=== PATIENT | female | born 1960 | race Caucasian/White ===

== ENCOUNTER 2021-04-30 13:19 | Outpatient (REF) | payer OTHER, SELFPAY ==
--- NOTE | ~2021-04-30 | MM_ITS ---
EXAMINATION: MM SCREENING DIGITAL BREAST TOMOSYNTHESIS, LEFT CLINICAL INFORMATION: Screening. Asymptomatic. Right mastectomy for breast cancer, 2004. Due for yearly COMPARISON: Mammography: 01/21/2020, 01/17/2020, 10/12/2018, 09/25/2017 TECHNIQUE: Digital breast tomosynthesis is performed in both the craniocaudal and mediolateral oblique views along with computer-aided detection (CAD). Synthesized 2D images are generated from the tomosynthesis. FINDINGS: The breasts are heterogeneously dense, which may obscure small masses (ACR BI-RADS breast composition Category c). Breast tissue composition borders on extremely dense. Parenchymal pattern is similar to prior exams. Again, there are scattered punctate calcifications and old benign low axillary tail node. The skin contours are smooth. No significant changes. MM/MM tomosynthesis screening LT IMPRESSION: No mammographic evidence of malignancy. ASSESSMENT: BI-RADS 2: Benign RECOMMENDATION: Routine annual mammography screening. This patient's information was entered into a reminder system with a target due date for their next mammogram.
== END 2021-04-30 13:20 | disposition home or self-care (01) ==
LOC: HO.MAMMO 13:19
PROVIDERS: Visit Provider Internal Medicine
DX: Z12.31 Encounter for screening mammogram for malignant neoplasm of breast (principal)
CPT/HCPCS: 77063; 77067

== ENCOUNTER 2022-05-02 12:53 | Outpatient (REF) | payer OTHER, SELFPAY ==
--- NOTE | ~2022-05-02 | MM_ITS ---
EXAMINATION: MM SCREENING DIGITAL BREAST TOMOSYNTHESIS, LEFT CLINICAL INFORMATION: Screening. Asymptomatic. Status post right mastectomy. COMPARISON: Mammography: April 30, 2021 and studies dating back to June 12, 2011 TECHNIQUE: Digital breast tomosynthesis is performed in both the craniocaudal and mediolateral oblique views along with computer-aided detection (CAD). Synthesized 2D images are generated from the tomosynthesis. FINDINGS: The breasts are heterogeneously dense, which may obscure small masses (ACR BI-RADS breast composition Category c). There are no new significant masses, abnormal calcifications, or other abnormalities. Grouped and scattered calcifications are again seen and appears stable. MM/MM tomosynthesis screening LT IMPRESSION: No significant changes from prior exam. ASSESSMENT: BI-RADS 1: Negative RECOMMENDATION: Routine annual mammography screening. This patient's information was entered into a reminder system with a target due date for their next mammogram.
== END 2022-05-02 12:54 | disposition home or self-care (01) ==
LOC: HO.MAMMO 12:53
PROVIDERS: PCP Internal Medicine; Visit Provider Internal Medicine
DX: Z12.31 Encounter for screening mammogram for malignant neoplasm of breast (principal)
CPT/HCPCS: 77063; 77067

== ENCOUNTER 2023-05-07 14:17 | Outpatient (REF) | payer OTHER, SELFPAY ==
--- NOTE | ~2023-05-07 | MM_ITS ---
EXAMINATION: MM SCREENING DIGITAL BREAST TOMOSYNTHESIS, LEFT CLINICAL INFORMATION: Screening. Asymptomatic. COMPARISON: Mammography: This study is compared with prior exams dating back to 2017. TECHNIQUE: Digital breast tomosynthesis is performed in both the craniocaudal and mediolateral oblique views along with computer-aided detection (CAD). Synthesized 2D images are generated from the tomosynthesis. FINDINGS: There are scattered areas of fibroglandular density (ACR BI-RADS breast composition Category b). There are no significant masses, abnormal calcifications, or other abnormalities. There are few, unchanged, benign calcifications. MM/MM tomosynthesis screening LT IMPRESSION: No mammographic evidence of malignancy. ASSESSMENT: BI-RADS BI-RADS 2 - Benign Findings RECOMMENDATION: Routine annual mammography screening. 1 year F/U This examination should not preclude the clinical evaluation of a suspicious palpable abnormality. This patient's information was entered into a reminder system with a target due date for their next mammogram.
== END 2023-05-07 14:18 | disposition home or self-care (01) ==
LOC: HO.MAMMO 14:17
PROVIDERS: PCP Internal Medicine; Visit Provider Internal Medicine
DX: Z12.31 Encounter for screening mammogram for malignant neoplasm of breast (principal)
CPT/HCPCS: 77063; 77067

== ENCOUNTER → 2023-05-07 14:30 | Outpatient (BNV) | payer OTHER, SELFPAY | PROVIDERS: PCP Internal Medicine; Visit Provider Radiology Diagnostic Radiology | DX: Z12.31 Encounter for screening mammogram for malignant neoplasm of breast (principal) | CPT/HCPCS: 77063; 77067 ==

== ENCOUNTER 2024-03-12 10:40 | Outpatient (AMB) | payer OTHER, SELFPAY ==
--- NOTE | 2024-03-12 07:57 | A.OFFVIS_ITS ---
Intake Visit Reasons: Current Smoker Allergies No Known Allergies [No Known Allergies*] Allergy (Unverified 03/23/20 17:48) HPI HPI Current Smoker: Details: Initial visit for this 63yo smoker with a 30+PYH. Patient has been smoking since age 17 for 45 years at 1/2-1ppd. She quit for a period of 9 months a few years ago - but has since restarted. Trying Chantix to cut down. . Denies marijuana use. Denies second hand smoke exposure. Denies exposure to chemicals or substances like asbestos. . Denies known family history of lung cancer. Reports personal history of Breast cancer - s/p mastectomy, chemo + radiation- [address] in last year. . Denies recent travel outside the [place]. Denies recent respiratory illness or recent hospitalization for respiratory issues. Denies testing positive for COVID. Admits receiving COVID Vaccine. x 3 or 4. . Denies fever, chills, new/worsening cough, hemoptysis, hoarseness or dysphagia. Denies significant chest pain, significant dyspnea or unintentional weight loss. Patient Lung Cancer Screening Questionnaire reviewed with patient by provider. . Shared Decision Making Completed. Patient meets criteria. Discussed in detail with patient, the risk vs benefit of LDCT screening. Patient consents to proceed with scan. Discussed smoking cessation. [facility] Medical History (Updated 03/12/24 @ 11:05 by Saida Robledo PA-C) History of right breast cancer Nicotine dependence, cigarettes, uncomplicated Surgical History (Updated 03/12/24 @ 11:06 by Saida Robledo PA-C) History of foot surgery History of exploratory laparotomy History of left mastectomy History of colonoscopy Social History (Updated 03/12/24 @ 10:55 by Saida Robledo PA-C) Patient Tobacco Use Status: Current everyday Tobacco user Years Smoked: (onset 17yo, 1/2-1ppd x 45yrs, 30+PYH) Assessment & Plan Assessment & Plan (1) Nicotine dependence, cigarettes, uncomplicated: Comment: (onset 17yo, 1/2-1ppd x 45yrs, 30+PYH) Code(s): F17.210 - Nicotine dependence, cigarettes, uncomplicated Category: Medical Plan: - SDM visit completed today in office. - Patient meets criteria for LDCT for lung cancer screening purposes and is asymptomatic. - Smoking cessation counseling offered. Patients can always call [phone]. - Will arrange for a LDCT scan of the chest for screening purposes at [facility]. - Risks, benefits, and alternatives were discussed in detail and the patient agrees to proceed. - Risks discussed include but are not limited to: radiation exposure, anxiety during testing and while awaiting results, false negatives, false positives and possibility of additional intervention such as further imaging or surgical procedures for benign disease. - Benefits are obviously detection of lung cancer at an early stage which can lead to improved outcomes. - Discussed the importance of screening program compliance with adherence to yearly LDCT scan as scheduled - or sooner interval scans for personalized sc reening regimen. - Discussed follow up plan. Our office will send a letter discussing results and if needed set up phone call and office visit based on CT findings. - Patient educated on results categorization and the management decisions for suspicious findings potentially found on the screening LDCT scan. Any patient with a Lung RADS score of 3 or 4 will be reviewed by a multidisciplinary team at [facility] to form a plan of action in regards to scan findings. - If further work up is warranted for a suspicious lung finding this will be followed by the Lung Cancer Screening program in conjunction with the Thoracic Surgery Department at [facility]. - A copy of the office note and LDCT will be sent to the patient's PCP - as well as documentation on any associated further plans of care. - Incidental findings on LDCT are the PCP's responsibility. These findings are indicated with an S finding on the LDCT Assessment. A note discussing the findings will be sent to the PCP who is then responsible for further management. - All questions answered.? Coding Level of Care Code Lung Cancer Screening G0296 Diagnoses Nicotine dependence, cigarettes, uncomplicated F17.210
== END 2024-03-12 11:04 | disposition home or self-care (01) ==
PROVIDERS: PCP Internal Medicine; Visit Provider Physician Assistant Medical
DX: F17.210 Nicotine dependence, cigarettes, uncomplicated (principal)
CPT/HCPCS: G0296

== ENCOUNTER 2024-03-12 11:05 | Outpatient (REF) | payer OTHER, SELFPAY ==
--- NOTE | ~2024-03-12 | CT_ITS ---
EXAMINATION: CT CHEST LOW-DOSE SCREENING WITHOUT CONTRAST HISTORY: Asymptomatic patient meeting criteria for lung screening. Nicotine dependence, cigarettes, uncomplicated. PATIENT PACK-YEAR HISTORY: Patient is a current smoker, 1 pack per-day x 45 years. Current Smoker: Yes. COMPARISON: None available. TECHNIQUE: Multidetector volumetric non-contrast CT imaging of the chest was obtained on a Somatom Definition scanner using low dose screening CT technique. Axial thin section 0.625 mm reformations in soft tissue and lung windows were obtained. Sagittal and coronal reformations were obtained. Axial MIP images were also created and reviewed. RECONSTRUCTED WIDTH: 1.25 mm x [address] examination was performed using dose optimization techniques as appropriate, variously including the following: *Automated exposure control *Adjustment of mA and/or kV according to patient size (this includes techniques or standardized protocols for targeted exams where dose is matched to indication/reason for exam; i.e. extremities or head) *Use of iterative reconstruction technique TOTAL EXAM DLP: 53 mGy-cm. CTDIvol: 147 mGy. FINDINGS: PULMONARY NODULES: A number of pulmonary nodules are present includin mm left upper lobe (5:38). 5 mm right upper lobe (5:38). 5 mm right upper lobe (5:71). 4 mm left upper lobe (5:72). Semisolid right upper lobe perifissural nodule measuring 8.6 x 6.6 x 4.2 mm-mean 6.4 mm (5:215). A few other smaller nodules are present as well (see saved eaton images). LUNGS: Lungs bilaterally symmetrically expanded. Mild emphysematous changes are present along with bronchial thickening without bronchiectasis. No effusion or pneumothorax. Central airways patent. LYMPHATIC STRUCTURES: No mediastinal, hilar or axillary adenopathy or free fluid collection. THYROID GLAND: Unremarkable to the extent seen. CARDIOVASCULAR STRUCTURES: Aortic and heart size normal. No significant coronary artery calcifications. No pericardial effusion. UPPER ABDOMEN: Included portions of the solid organs in the upper abdomen unremarkable on noncontrast imaging. OSSEOUS STRUCTURES: No suspicious focal findings. SPINAL COMPRESSION: Absent. CT/CT lung screening IMPRESSION: Multiple pulmonary nodules are seen, the largest measuring a mean of 6.4 mm on this baseline study. LUNG-RADS CATEGORY ASSESSMENT: 3: Probably Benign. INCIDENTAL FINDINGS (S CATEGORY): Finding: No incidental findings. Significance category: Normal or normal variant. RECOMMENDATION: Low dose lung CT. overall in 6 months. Visual estimate of coronary calcified plaque burden: None. However, this exam cannot replace a dedicated cardiac CT calcium score for accurate assessment. Electronically signed by: Gage Elliott MD 05/10/2024 02:06 PM [facility]
== END 2024-03-12 11:06 | disposition home or self-care (01) ==
LOC: HO.CT 11:05
PROVIDERS: PCP Internal Medicine; Visit Provider Physician Assistant Medical
DX: Z12.2 Encounter for screening for malignant neoplasm of respiratory organs (principal); F17.210 Nicotine dependence, cigarettes, uncomplicated
CPT/HCPCS: 71271; G0296

== ENCOUNTER → 2024-06-23 13:30 | Outpatient (BNV) | payer OTHER, SELFPAY | PROVIDERS: PCP Internal Medicine; Visit Provider Internal Medicine | DX: Z12.31 Encounter for screening mammogram for malignant neoplasm of breast (principal) | CPT/HCPCS: 77063; 77067 ==

== ENCOUNTER 2024-06-23 13:33 | Outpatient (REF) | payer OTHER, SELFPAY | END 2024-06-23 13:34 | disposition home or self-care (01) | LOC: HO.MAMMO 13:33 | PROVIDERS: PCP Internal Medicine; Visit Provider Internal Medicine | DX: Z12.31 Encounter for screening mammogram for malignant neoplasm of breast (principal) | CPT/HCPCS: 77063; 77067 ==

== ENCOUNTER 2024-07-29 13:16 | Outpatient (REF) | payer OTHER, SELFPAY ==
--- NOTE | ~2024-07-29 | MM_ITS ---
EXAMINATION: MM DIAGNOSTIC DIGITAL BREAST TOMOSYNTHESIS, LEFT Limited left breast ultrasound. CLINICAL INFORMATION: History of right mastectomy. History of left breast mastopexy. COMPARISON: Mammography: Comparison is made with prior breast imaging dating back to 2012. TECHNIQUE: Digital breast tomosynthesis is performed in both the craniocaudal and mediolateral oblique views along with computer-aided detection (CAD). Synthesized 2D images are generated from the tomosynthesis. Limited left breast ultrasound. FINDINGS: The breasts are heterogeneously dense, which may obscure small masses (ACR BI-RADS breast composition Category c). Architectural distortion in the upper central breast stable dating back to 2019 and reflects post mastopexy changes. No suspicious masses calcifications or other abnormal findings. Targeted color Doppler ultrasound scanning from 10-2 o'clock images normal fibroglandular breast tissue. MM/MM tomosynthesis added views L IMPRESSION: No mammographic or sonographic evidence of malignancy. Post mastopexy changes are stable. Patient has a history of breast cancer and dense breast tissue. Breast MRI could be considered for further evaluation. Breast MRI needs to be ordered by the patient's providing clinician. ASSESSMENT: BI-RADS BI-RADS 2 - Benign Findings RECOMMENDATION: 1 year F/U Results were provided to the patient at time of visit by the technologist. This patient's information was entered into a reminder system with a target due date for their next mammogram. Electronically signed by: Gretchen Trejo DO 07/29/2024 02:00 PM [facility] Workstation: [id number]
== END 2024-07-29 13:17 | disposition home or self-care (01) ==
LOC: HO.MAMMO 13:16
PROVIDERS: PCP Internal Medicine; Visit Provider Internal Medicine
DX: N64.89 Other specified disorders of breast (principal)
CPT/HCPCS: 76642; 77061; 77065

== ENCOUNTER → 2024-07-29 13:30 | Outpatient (BNV) | payer OTHER, SELFPAY | PROVIDERS: PCP Internal Medicine; Visit Provider Internal Medicine | DX: Z85.3 Personal history of malignant neoplasm of breast (principal) | CPT/HCPCS: 76642; 77061; 77065 ==

== ENCOUNTER 2024-09-07 11:01 | Outpatient (REF) | payer OTHER, SELFPAY ==
--- NOTE | ~2024-09-07 | CT_ITS ---
CLINICAL HISTORY: F17.210 - Nicotine dependence, cigarettes, uncomplicated CT lung cancer screening (LDCT) Comparison: Chest CT from 03/12/2024 Technique: Axial CT images of the chest using low-dose technique. Referring provider counseled the patient on shared decision-making for LDCT screening. Additional counseling was provided on smoking cessation. Effective radiation dose total: DLP 90.1 mGycm, CTDIvol 2.4 mGy. Findings: Lung: New ground-glass lesion measures 1.4 cm (part solid less than 5 mm) posteriorly in the right upper lobe (4A). This is nonspecific but may be infectious/inflammatory, given multiple new bilateral pulmonary opacities, with apical predominance. Additional new airspace disease includes lingula , right middle lobe, and right lower lobe. Lung etiologies not excluded. Coronary artery calcifications: Moderate to severe Limited upper abdomen: Unchanged Other: No significant change in old mild-moderate thoracic vertebral height losses, again accentuated by multifocal Schmorl's nodes degenerative changes include the imaged shoulders, manubrium, and spine. Impression: Category 4 S (potentially clinically significant) with new multifocal airspace disease concerning for multifocal pneumonia. Otherwise, Category 4A: Suspicious, [address] recommended; may consider PET/CT, given new ground-glass index in the right upper lobe This document has been electronically signed by: Сергей Cárdenas MD on 09/07/2024 21:14:29
--- OUTSIDE RECORDS SUMMARY | 2024-09-07 13:47 | XMS_ITS | Data Portability ---
Author Organization [facility], [facility] Address [address] [place] [address] Care Team Providers Care Professor Of German Name Role Phone KEI JIMÉNEZ Primary Care Provider [phone] Assessment Encounter Date Assessment Date Assessment LastModified by Organization Details LastModified Time 07/01/2024 07/01/2024 Chief Complaint: Right knee complex medial meniscus tear and medial compartment arthrosis HPI: The patient is a 64-year-old female here today regarding a chronic long-term history of recurrent right knee pain. She ices her pain to her medial knee. She denies any specific injury or trauma. She has tried rest, activity modification, oral anti-inflammatori es and cortisone injection treatment. Of note, she is greater than 1 year status post previous left knee arthroscopy with partial medial meniscectomy and chondroplasty performed by myself in 2022 and has done very well since that surgery. She complains of similar pain to her right knee. I independently reviewed the outside MRI of the right knee dated 06/20/2024 from [facility]. There is complex tearing of the posterior horn and body of the medial meniscus along with significant meniscal extrusion. Full thickness and near full but is chondral loss noted to the mid weightbearing portion medial femoral condyle and medial tibial plateau along with subchondral edema. ACL and PCL intact. Likely degenerative tearing of the anterolateral and lateral meniscus. Mild chondromalacia to the lateral compartment. Extensor mechanism intact. Collateral ligaments intact. Mild patellofemoral chondromalacia. I independently reviewed recent weightbearing x-rays of both knees obtained 03/05/2024 from [facility] revealing relatively normal medial and lateral compartment joint space. Past medical, surgical, family and social history; Medications, Allergies and 12-point review of systems have been reviewed, updated and charted. Physical Examination: Height and weight as listed in chart. Constitutional: Patient pleasant, well appearing and in NAD. Mental status: Patient is alert and oriented to person, place and time. No short-term memory deficits. Psychiatric: Mood and affect are appropriate. Head: Normocephalic and atraumatic. Exterior inspection of the ears and nose was unremarkable. Hearing grossly intact. Eyes: Sclera are not blue. plate roller II-XII are grossly intact. Full extraocular motion. Neck: Supple with age-appropriate ROM. No tracheal deviation. No obvious JVD. Respiratory: Non-labored breathing. Symmetric excursion. No audible wheezing or crackles on auscultation. Cardiovascular: Regular rate and rhythm and normal S1 and S2. Skin: No rashes, lesions, wounds to the lower extremities. Normal turgor and coloration. Musculoskeletal: On examination of the right knee, there is a mild effusion with no erythema or ecchymosis. Range of motion from 0-130? ? ? pictures pain with deep knee flexion. Tenderness to palpation along the medial joint line. Pain along the medial joint line with Lindy's maneuver. Her knee is stable to varus and valgus stress as well as Isabella and posterior drawer. Extensor mechanism intact. Impression and Plan: 64-year-old female with a long-term history of recurrent right knee pain overall history, examination and imaging consistent with right knee complex medial meniscus tear and medial compartment arthrosis. I discussed etiology of the patient's symptoms with her at length today. I discussed options both operative and nonoperative. At this point, she has failed conservative treatment including rest, activity modification, oral anti-inflammatori es and cortisone injection treatment. Therefore, I discussed moving forward with right knee diagnostic and operative arthroscopy with partial medial meniscectomy, partial lateral meniscectomy and chondroplasty/sydney ridement. I discussed with her at length that I cannot cure her underlying arthritis with arthroscopy. She did have a favorable outcome despite early arthritic change following a knee arthroscopy to the left knee. I did discuss with her that she will likely require a knee replacement to her right knee in the future but she would like to take measures to delay this at possible. Anticipated recovery after surgery is approximately 6 weeks. I will allow the patient to weight-bear as tolerated. I recommend the patient begin physical therapy within 2 days of surgery to prevent knee stiffness. The patient does wish to proceed. Preoperative history and physical completed. All questions and concerns addressed. 1. A detailed discussion regarding the patient? s pathoanatomy and treatment options, both operative and non-operative, was conducted today. 2. Given that conservative measures have failed, I recommended right knee diagnostic and operative arthroscopy with partial medial meniscectomy, partial lateral meniscectomy and chondroplasty/sydney ridement. 2. The mechanics of the major surgery were reviewed with explanation, diagram, and review of imaging. 3. I told the patient that the goal of surgery was to improve their overall function and symptoms, but that surgery may not relieve all symptoms. I advised the patient that symptom resolution after this procedure may be protracted and incomplete.? ? ? I explained that, as a result, permanent functional limitations may be recommended. 4. An appropriate timeline of recovery was outlined, and appropriate expectations were reviewed. 5. The risks and benefits of surgery, and the nonoperative alternatives, were discussed at length. Risks include, but are not limited to infection, bleeding, damage to nerves, blood vessels, muscle, tendon, bone; need for further surgery, wound healing problems, hardware related problems, non-relief of symptoms, recurrence of pathology, reinjury, chronic pain, chronic numbness, chronic weakness, loss of function, compartment syndrome, fracture, complex regional pain syndrome, joint stiffness, adhesions/scarrin g, arthritis or progression of arthritis, complications of anesthesia, and blood clots. 6. The patient has been educated in clear, simple language and on their own level of understanding the risks and benefits of all viable treatment options, including those of no treatment. All questions have been answered to their satisfaction. The patient has made an informed decision to proceed with surgery. 7. The patient was offered a second opinion regarding diagnosis and management of their condition and they respectfully declined. Today's visit involved examining the patient, reviewing the history, reviewing the radiographic studies, counseling the patient regarding treatment options, and the administrative tasks including placing orders, preparing patient information and home handouts and preparing the visit note. This note was generated with [employer] [facility] speech recognition joist setter dictation software. Please excuse any errors that may have been overlooked during review of this note. Sometimes, these errors may affect the content or meaning of a given sentence. Please call for corrections. [email or web address] Not available 07/01/2024 09:26:24 Plan of Treatment Reminders Order Date Submit Date Provider Last Modified By Organization Details Last Modified Time Details Appointments None recorded. Lab None recorded. Referral None recorded. Procedures None recorded. Surgeries None recorded. Imaging MRI, knee, w/o contrast - Right knee MRI eval MMT 2023 024 [facility] ([facility] [address], [place], [address], 4 16:17:53 XR, knee, 4 or more view - ROOM 1 2023 024 [facility], [address], [address], [place], [address], 4 16:48:39 Medication Orders None recorded. Patient TargetsNo targets recorded. Patient InstructionsNo instructions recorded. Reason for Referral None Reported. Results Created Date Observation Date Name Description Value Unit Range Abnormal Flag Note LastModifiedBy Organization Detail LastModifiedTime 03/05/20 24 03/05/2024 XR, knee, 4 or more view [email or web address] ?Encry pted=s hAaTro YD8dLq bEUv6g %2BXZw aYqtaq 0bqfl% 2Fg9IQ a4ajBk vP9nXo QUaueC m3YtLR FvZlgJ JJ8mAn HZtai3 7x0999 AC0Kpb 3WGU6C nKiQtr MwF INTERFACE [facility] [address], [place], [address], 03/05/2024 13:29:41 03/05/20 24 03/05/2024 XR, knee, 4 or more view [email or web address] ?Encry pted=s hAaTro YD8dLq bEUv6g %2BXZw aYqtaq 0bqfl% 2Fg9IQ a4ajBk vP9nXo QUaueC m3YtLR FvZlgJ JJ8mAn HZtai3 4f8704 AC0Kpb 3WGU6C nKiQtr MwF INTERFACE [facility] [address], [place], [address], 03/05/2024 13:29:43 03/05/20 24 09/19/2022 imagi ng/di agnos tic resul t No observ ation record ed. [email or web address] Not Available 02/06 20:59:37 06/22/20 24 06/20/2024 MRI, knee, w/o contr ast [facility] Access ion Number : [id number] [place] t Name: Gladys Campos Record Number : [id number] Date of : 1959 Date of Exam: 2023 Referr ing Physic rhonda: Cheryl Funes en [facility] [address], [address] [facility], [facility] [address] Exam: MR Knee (C-) CPT 75269 - Right Room Descri ption: [place] GE Pion 3T Histor y: Other tear medial menisc us, curren t injury , questi on right medial menisc al tear. The patien t report s right knee pain which was not reliev ed with cortis one inject ion, sympto ms for years, occasi onal swelli ng and weakne ss.. Techni que: MRI of the right knee was perfor med withou t intrav enous contra st. Compar warren: None. Findin gs: Joint effusi on: There is mild synovi tis in the suprap atella r recess withou t a signif icant joint effusi on. Hoffa' s fat pad is unrema rkable . There is a multil obulat ed Couch' s cyst. Menisc i: There is a horizo ntal tear of the medial menisc al pharmacy informaticist ior third extend ing into the body. There is partia lly detach ed, displa candy menisc al fragme nt extend ing inferi ortiz in the medial gutter from the body. Free margin trunca tion is seen in the body of the latera l menisc us with focal horizo ntal tear along the free margin anteri or third. Tendon s and ligame nts: The ACL and PCL are intact . The collat eral ligame nts are unrema rkable . The ilioti bial band is unrema rkable . The extens or mechan ism appear s normal . Articu lar cartil age and bone: There is full-t hickne ss chondr al loss in the periph lindsey of the weight bearin g portio n the medial compar tment involv ing both the femora l and tibial surfac es with adjace nt subcho ndral marrow edema. Bony prolif eratio n is seen along both joint lines. There is irregu lar chondr al thinni ng in the pharmacy informaticist ior aspect of the latera l femora l condyl e. There is chondr al thinni ng inferi ortiz in the medial trochl ea with adjace nt subcho ndral cysts. Mild chondr al thinni ng is seen of the patell a. Impres eric: 1. Horizo ntal tear of the pharmacy informaticist ior third and body of the medial menisc us. 2. Horizo ntal tear anteri ortiz in the latera l menisc us and free margin tearin g of its body 3. Tricom partme ntal degene rative change with full-t hickne ss chondr al loss in the weight bearin g portio n of the medial compar tment. Electr onical ly Signed By: Mia Castano ra, MD [address] [facility] ([facility]) [address], [place], [address], 06/25/2024 13:33:47 06/22/20 24 06/20/2024 MRI, knee, w/o contr ast No observ ation record ed. [facility] ([facility]) [address], [place], [address], 06/25/2024 12:15:23 Result Notes None recorded. Problems Name Problem SNOMED Code Status Onset Date Resolution Date Notes Provider Name and Address Organization Details Recorded Time No complaints 031541135 Active Status : 'I'; Not Available [facility] 4 09:22:10 Problem Notes None recorded. Procedures Surgical History Date Name Laterality Status Provider Name and Address Organization Details Recorded Time 03/05/2024 Sports Knee 4&1 completed Brandie Funes PA-C [address], [place], [address], [facility] 03/05/2024 14:02:36 Imaging Results Imaging Date Name Status LastModified by Organiz ation Details LastModified Time 03/05/2024 XR, knee, 4 or more view completed INTERFACE [facility] [address], [place], [address], 03/05/2024 13:29:41 03/05/2024 XR, knee, 4 or more view completed INTERFACE [facility] [address], [place], [address], 03/05/2024 13:29:43 09/19/2022 imaging/diagn ostic result completed [email or web address] Information not available 03/05/2024 20:59:37 06/20/2024 MRI, knee, w/o contrast completed [address] [facility] ([facility]) [address], [place], [address], 06/25/2024 13:33:47 06/20/2024 MRI, knee, w/o contrast completed [facility] ([facility]) [address], [place], [address], 06/25/2024 12:15:23 Procedure Notes None recorded. Medical Equipment None Reported. Allergies No known drug allergies Medications Name Sig Start Date Stop Date Status Note LastModified by Organization Details LastModified Time venlafaxine ER 75 mg capsule,ext ended release 24 hr TAKE 1 CAPSULE BY MOUTH EVERY DAY active Not Available Not Available No t Available levothyroxi ne 100 mcg tablet TAKE 1 TABLET BY MOUTH EVERY DAY active Not Available Not Available No t Available pseudoephed rine-guaife nesin ER 80-700 mg tablet,exte nded release 1-2 TABS EVERY 4-6 HOURS NEEDED FOR PAIN. THIS PRESCRIPT ION MUST LAST 7 DAYS 10/07 completed Statu s: 'Disc ontin ued'; Not Available Not Available Not Available varenicline tartrate 1 mg tablet TAKE 1 TABLET BY MOUTH TWICE A DAY active Not Available Not Available No t Available oxycodone HCl-oxycodo ne-ASA as directed 1 Tab po Q 4-6 hrs prn pain. DO NOT DRIVE WHILE TAKING THIS MEDICATIO N 03/05 completed Statu s: 'Curr ent'; Not Available Not Available Not Available Vitals Date Recorded Body height Body mass index (BMI) Body weight Provider Name and Address Organization Details Last Updated DateTime 03/05/2024 167.64 cm 29.9 kg/m2 01397.59 g HARRY MOORE [facility] 03/05/2024 13:21:05 Date Recorded Body height Body mass index (BMI) Body weight Provider Name and Address Organization Details Last Updated DateTime 06/11/2024 167.64 cm 29.9 kg/m2 17942.59 g Elida joya [facility] 06/11/2024 13:49:29 Date Recorded Body height Body mass index (BMI) Body weight Heart rate Body temperature Oxygen saturation Oxygen saturation in Arterial blood by Pulse oximetry Respiratory rate Systolic blood pressure Diastolic blood pressure Provider Name and Address Organization Details Last Updated DateTime 167.64 cm 29.9 kg/m2 39202.5 9 g 76 /min 97.4 [degF] 96 % 96 % 18 /min 112 mm[Hg] 82 mm[Hg] ROMINA WEATHERS [facility] 09:38:11 Social History Question Answer Notes LastModified by Organizat ion Details LastModified Time Tobacco Smoking Status Current Every Day Smoker HARRY monk [facility] 03/05/2024 13:21:47 What Is Your Level Of Alcohol Consumption? Occasional Information not available 03/05/2024 How Many Times Per Week Do You Consume Alcohol? 1-2 Times Per Week Information not available 03/05/2024 Have You Ever Been Counseled For Unhealthy Alcohol Use? No Information not available 03/05/2024 What Is Your Relationship Status? Unknown Information not available 03/05/2024 How Much Tobacco Do You Smoke? 0.5 PPD Information not available 03/05/2024 Do You Use Any Illicit Or Recreational Drugs? No Information not available 03/05/2024 Do You Or Have You Ever Used Any Other Forms Of Tobacco Or Nicotine? No Information not available 03/05/2024 Sex: Unknown Functional Status None recorded. Mental Status None recorded. Family History Nothing Reported. Medical History Condition Response Anxiety/Depression Y Thyroid Problems Y Gynecological HistoryNo gynecological history recorded. Obstetrics History GPAL:G 0 P 0 0 0 0 Past Encounters Encounter ID Performer Location Encounter Start Date Encounter Closed Date Diagnosis/Indication Diagnosis SNOMED-CT Code Diagnosis ICD10 Code Diagnosis Note [id number] Brandie Funes PA-C [facility] Clinical [address] [place] [address] 03/05/2024 13:09:50 04/01/2024 10:23:45 Pain of right knee joint [id number] 75380 M25.561 Nature of the diagnosis discussed with the patient today. Both surgical and nonsurgica l options were reviewed. At this point I have recommende d a repeat cortisone injection. Patient agrees with this plan. Patient tolerated the procedure well. Post injection precaution s reviewed. They will continue with conservati ve modalities including icing and elevating. Follow-up with us in 3 months for discussion of continued conservati ve management versus total joint arthroplas ty. If symptoms persist after 3 months could consider MRI to evaluate for meniscus pathology although she does not have any mechanical symptoms. Her symptoms were likely related to her underlying osteoarthr itis. Encouraged low-impact exercise program. All questions and concerns were addressed and answered. [id number] Brandie Funes PA-C [facility] on Clinical [address] [place] [address] 06/11/2024 13:46:24 07/08/2024 14:10:50 Osteoarthritis of right knee joint 2700475968 25969 M17.11 Tear of me dial meniscus of knee 084234967 S83.241D Given patient's persistent pain refractory to conservati ve treatment efforts including activity modificati on, anti-infla mmatories, home exercise program and cortisone injection would recommend obtaining MRI to evaluate for medial meniscus tear. Did review that she does have some underlying osteoarthr itis which is not treatable with arthroscop y however given that she has failed conservati ve measures and she did so well on her contralate ral knee we could expect similar results and outcomes on the right knee. Therefore we will obtain MRI to evaluate for medial meniscus pathology. If she is found to have meniscus tear we will reschedule her follow-up with Dr. Santiago to discuss booking arthroscop y and partial meniscecto my surgery. All questions and concerns were addressed and answered. [id number] MD [address] [place] [address] 07/01/2024 09:05:24 07/21/2024 14:16:55 Tear of medial meniscus of knee 760015295 S83.241A Health Concerns Section Related Observation LastModified by Organization Detai ls LastModified Time None Recorded Concern Status LastModified by Organization Details LastModified Time None Recorded Advance Directives Directive None Recorded Payers Encounter Date Sequence Insurance Name Policy Number Policy Gonzalez Covered Member ID Gonzalez Member ID Guarantor Name 03/05/2024 1 [facility] (MEDICAID HMO) [id number] Gladys J Brusco [id number] Gladys J Brusco 06/11/2024 1 [facility] PL[facility] (MEDICAID HMO) [id number] Gladys J Brusco [id number] Gladys J Brusco 07/01/2024 1 [facility] PL[facility] (MEDICAID HMO) [id number] Gladys J Brusco [id number] Gladys J Brusco Notes Date Note Type Note Provider Name and Address Organization Details Recorded Time 03/05/2024 text/html I am seeing the patient under the general supervision of {{Dr. Pamela Kerr*}} who was available but who did not see the patient. Patient is a {{ 63#}} year old {{male female*}} who presents today with chief complaint of right knee pain. Reports insidious onset of right knee pain over the last several months becoming worse in the last month or two. Describes an aching burning pain which wakes her up from sleep. She has had some falls in the past but no specific fall or injury. She notices aching and throbbing with the changes in weather. She has been using voltaren gel and occasional advil with minimal relief. She is known to me for previous left knee arthroscopy with partial medial meniscectomy with Dr. Santiago in october of 2023. She is doing very well overall in regards to her left knee. DIAGNOSTIC IMAGING: {{4 view* 3 view 2 view}} {{right* left bilatera l}} {{knee* hip shoulder}} radiographs were ordered, obtained and independently reviewed by myself during today's visit at [facility] and demonstrate tricompartmental degenerative changes noted of the right knee with medial and lateral compartment osteophyte formation. Mild medial compartment joint space narrowing noted on Meier view. Merchant view demonstrates mild lateral patellar subluxation bilaterally with small cyst versus OCD lesion noted in the distal medial femoral condyle. Distal femoral osteophyte formation at also noted at the right knee on merchant view. Brandie Funes PA-C [address], [place], [address], [facility] 03/05/2024 14:03:47 06/11/2024 text/html I am seeing the patient under the general supervision of {{Dr. Pamela Kerr*}} who was available but who did not see the patient. Patient is a {{ 63#}} year old {{male female*}} who presents today for follow-up of right knee pain. I last saw her in February and we attempted intra-articular cortisone injection for symptomatic relief given that she did have some mild to moderate underlying osteoarthritic changes. However she states that this did not provide any relief really whatsoever and continues to have intermittent sharp shooting pain to the right knee which wakes her from sleep. She had similar symptoms on her contralateral knee which was treated with arthroscopy and partial meniscectomy and she did very well with that. She states that this knee feels pretty much the same. Brandie Funes PA-C [address], [place], [address], [facility] 06/11/2024 14:13:04 OBGyn Episode No OBEpisode recorded.
== END 2024-09-07 11:02 | disposition home or self-care (01) ==
LOC: HO.CT 11:01
PROVIDERS: PCP Internal Medicine; Visit Provider Physician Assistant Medical
DX: R91.1 Solitary pulmonary nodule (principal); F17.210 Nicotine dependence, cigarettes, uncomplicated
CPT/HCPCS: 71250

== ENCOUNTER → 2024-09-07 11:03 | Outpatient (BNV) | payer OTHER, SELFPAY | PROVIDERS: PCP Internal Medicine; Visit Provider Radiology Neuroradiology | DX: F17.210 Nicotine dependence, cigarettes, uncomplicated (principal); R91.1 Solitary pulmonary nodule | CPT/HCPCS: 71250 ==

== ENCOUNTER 2025-03-14 13:53 | Outpatient (REF) | payer OTHER, SELFPAY ==
--- NOTE | ~2025-03-14 | CT_ITS ---
EXAMINATION: CT LUNG SCREENING FOLLOW UP WITHOUT IV CONTRAST HISTORY: R91.1 - Solitary pulmonary nodule TECHNIQUE: Low dose axial images were obtained from the sternal notch to upper abdomen without IV contrast per standard departmental protocol. Sagittal and coronal reformatted images were also obtained and reviewed. One or more of the following techniques was used for dose reduction: Automated exposure control, adjustment of the mA and/or kV according to patient size, use of iterative reconstruction technique. DLP: 52 mGy-cm COMPARISON: Comparison is made with the prior examination dated 09/07/2024. FINDINGS: Lung nodules: There has been improvement in previously seen multifocal nodular airspace opacities in both upper lobes. Many of these may represent partially obstructing airways. Several scattered subcentimeter nodular opacities remain in both upper lobes. No new nodules are identified. Emphysema: none Coronary Calcification: severe Aortic Arch Calcification: mild Potentially Significant Incidentals : none Additional Chest Findings: There is no pleural or pericardial effusion. No mediastinal or axillary lymphadenopathy is identified. There are surgical clips in the right axilla. Visualized upper abdomen: The visualized portions of the liver, spleen, and adrenals have an unremarkable unenhanced appearance. CT/CT lung screen follow up IMPRESSION: Improvement in previously seen multifocal nodular airspace opacities in both upper lobes. The patient may resume routine annual screening low-dose chest CT. LUNG-RADS ASSESSMENT: Lung-RADS 2: Benign MANAGEMENT: Continue annual screening with LDCT in 12 months Category S: N/A Electronically signed by: Jamison Sena MD 03/14/2025 02:53 PM EDT
--- OUTSIDE RECORDS SUMMARY | 2025-03-14 16:16 | XMS_ITS | Clinical Summary ---
Author Organization [facility] Address [address] [place] [address] Phone Care Team Providers Care Press Operator Meat Name Role Phone Unknown, Unknown Primary Care Provider Diego johnson Social History Tobacco Use Types Packs/Day Years Used Date Smoking Tobacco: Never Assessed Education Answer Date Recorded Are you interested in more education? Not on blake e 11/24/2023 Are you concerned about learning? Not on file 11/24/2023 No 11/24/2023 No 11/24/2023 Digital Access Answer Date Recorded No 11/24/2023 No 11/24/2023 Reliable internet access at home? Not on file 11/24/2023 Device with a working camera? Not on file Comments Unknown Sex and Gender Information Value Date Recorded Sex Assigned at Not on file Legal Sex Female 9:47 PM EDT Gender Identity Not on file Sexual Orientation Not on file Last Filed Vital Signs Vital Sign Reading Time Taken Comments Blood Pressure 120/76 09/13/2013 3:00 AM EDT Pulse - - Temperature - - Respiratory Rate - - Oxygen Saturation - - Inhaled Oxygen Concentration - - Weight 80.4 kg (177 lb 3.2 oz) 09/13/2013 3:00 A M EDT Height 165.1 cm (5' 5 ) 09/13/2013 3:00 AM EDT Body Mass Index 29.49 09/13/2013 3:00 AM EDT Plan of Treatment Not on file Medical Devices Not on file Insurance [facility] [address] [place] [address] [place], [place] [address] [place], [place] [address] [facility] Care Teams Press Operator Meat Relationship Specialty Start Date End Date Unknown, Unknown, MD PCP - General 08/12/17 Additional Source Comments The information contained in this document represents components of the legal health record. It is not the complete legal health record.[facility]
--- OUTSIDE RECORDS SUMMARY | 2025-03-14 16:16 | XMS_ITS | Clinical Summary ---
Author Organization [address] Address [address] [place] [phone] Phone Care Team Providers Care Network Support Manager Name Role Phone Unavailable Primary Care Provider Unavailabl e Allergies No known active allergies Medications levothyroxine (SYNTHROID, LEVOTHROID) 100 MCG tablet Take 100 mcg by mouth daily Active venlafaxine (EFFEXOR-XR) 75 MG 24 hr capsule Take 75 mg by mouth daily Active amLODIPine (NORVASC) 2.5 MG tablet Take 1 tablet (2.5 mg total) by mouth daily 30 tablet 2 9 Active calcium carbonate (TUMS) *200 mg CALCIUM* chewable tablet Take 1 tablet (500 mg total) by mouth 3 (three) times daily as needed for Indigestion 9 Active Active Problems Problem Noted Date Diagnosed Date Small bowel obstruction (HC Code) 12/08/2018 Periumbilical abdominal pain 11/28/2018 Family History Medical History Relation Name Comments Inflam bowel dis Neg Hx Social History Tobacco Use Types Packs/Day Years Used Date Smoking Tobacco: Every Day Cigarettes Smokeless Tobacco: Never Alcohol Use Standard Drinks/Week Comments Yes 0 (1 standard drink = 0.6 oz pur e alcohol) beer socially Comments Unknown Sex and Gender Information Value Date Recorded Sex Assigned at Not on file Legal Sex Female 1:33 PM EDT Gender Identity Not on file Sexual Orientation Not on file Last Filed Vital Signs Vital Sign Reading Time Taken Comments Blood Pressure 131/87 12/08/2018 2:08 PM EDT Pulse 82 12/08/2018 2:08 PM EDT Temperature 36.7 C (98.1 F) 12/08/2018 2:08 PM EDT Respiratory Rate 16 12/08/2018 2:08 PM EDT Oxygen Saturation 94% 12/08/2018 2:08 PM EDT Inhaled Oxygen Concentration - - Weight 84.4 kg (186 lb) 12/11/2018 1:29 PM EDT Height 167.6 cm (5' 6 ) 12/11/2018 1:29 PM EDT Body Mass Index 30.02 12/11/2018 1:29 PM EDT Plan of Treatment Health Maintenance Due Date Last Done Comments HIV screening 1974 Hepatitis C screening 1979 Tetanus adult (Td q 10,TDAP once) 1981 Cervical cancer screening 1982 Breast cancer screening 2001 Lipid disorder screening 2001 Colon cancer screening, Colonoscopy 2006 Pneumococcal Vaccine (50+ years) (1 of 1 - PCV) 2011 Shingles vaccine (Shingrix) (1 of 2 - Shingrix (RZV) 2 Dose Standard Series) 2011 Diabetes screening 12/07/2021 12/07/2018, 0 12/06/2018, 12/05/2018, Additional history exists Covid-19 vaccine series (1 - 2023- season) 2025 Influenza vaccine 03/07/2025 RSV Immunization (1 - 1-dose 75+ series) 2036 Meningococcal B Vaccine Aged Out No l onger eligible based on patient's age to complete this topic Meningococcal Vaccine Aged Out No divya josef eligible based on patient's age to complete this topic Procedures Procedure Name Priority Date/Time Associated Diagnosis Comments BASIC METABOLIC PANEL Routine 12/07/2018 6:18 AM EDT from Last 3 Months or Most Recently Relevant to Health Maintenance Results * (ABNORMAL) Basic metabolic panel (12/07/2018 6:18 AM EDT) Glucose 94 65 - 110 mg/dL 12/07/2018 6:47 AM [facility] Comment: Non-fastin-110 mg/dL Fasting (minimum 6 hrs): 65-99 mg/dL BUN 17 7 - 18 mg/dL 12/07/2018 6:47 AM [facility] Creatinine 0.69 0.55 - 1.02 mg/dL 12/07/2018 6:47 AM [facility] eGFR (-[place]) >60 >60 mL/min/1. 73m2 12/07/2018 6:47 AM [facility] eGFR (NON -Ghanaian) >60 >60 mL/min/1. 73m2 12/07/2018 6:47 AM [facility] Comment: (NOTE) These are estimated GFR values resulting from utilization of a calculation incorporating the best data available for input, but all assumptions may not be correct in every case. In addition, there are several situations (elderly over 70 years, , serious co morbidities, extremes of body size or nutritional status) which could contribute to a misleading result. Therefore, clinical correlation is advised to prevent arriving at an erroneous conclusion based solely on the calculation utilized. Sodium 135(L) 136 - 145 mmol/L 12/07/2018 6:47 AM [facility] Potassium 4.3 3.5 - 5.1 mmol/L 12/07/2018 6:47 AM [facility] Chloride 101 98 - 107 mmol/L 12/07/2018 6:47 AM [facility] CO2 27 21 - 32 mmol/L 12/07/2018 6:47 AM [facility] Anion Gap 7 5 - 15 mmol/L 12/07/2018 6:47 AM [facility] Calcium 8.3(L) 8.5 - 10.1 mg/dL 12/07/2018 6:47 AM [facility] Blood Venipuncture / Unknown 12/07/2018 6:18 AM EDT 12/07/2018 6:18 AM EDT us Dia Santos MD LAB BLOOD ORDERABLES F inal Result [facility] [address] [place] [id number], [facility] [phone] from Last 3 Months or Most Recently Relevant to Health Maintenance Insurance [employer] COMM[employer]CIAL [employer] COMM[employer] Advance Directives * Full ACLS (Latest Code Status on File) Date Activated Date Inactivated Comments 12/04/2018 12:09 PM 12/08/2018 6:53 PM * Full ACLS Date Activated Date Inactivated Comments 11/28/2018 9:34 PM 12/04/2018 12:09 PM
--- OUTSIDE RECORDS SUMMARY | 2025-03-14 16:16 | XMS_ITS | Patient Health Record ---
Author Organization [facility] Address [address] [place] [id number] Care Team Providers Care Presser Automatic Name Role Phone Mariela Nicholas Primary Care Provider Unavailab Charles Sy Jr Unavailable Reason For Referral No Information Medications Medication SIG (Take, Route, Frequency, Duration) Notes Start Date End Date Status MiraLax (colon prep) 8.3 ounce ((238) grams mixed with Gatorade or Crystal Light orally begin at 5:00 p.m. the day before the procedure for 1 day 09/09/2019 Active Levothyroxine Sodium 100 MCG TAKE 1 TABL ET BY MOUTH EVERY DAY Oral for 90 Active Venlafaxine HCl ER 75 MG TAKE 1 CAPSULE BY MOUTH EVERY DAY Oral for 30 Active Immunizations Vaccine Route Administration Date Status Comme nts Influenza Unknown 09/09/2019 Refused Social History Tobacco Use: Social History Observation Description Date Details (start date - stop date) Current Smoker NA - NA Tobacco Use/Smoking Question Answer Notes Patient is a current smoker How often do you smoke cigarettes? every day How many cigarettes a day do you smoke? 21-30 Alcohol Screen Question Answer Notes Did you have a drink contain ing alcohol in the past year? Yes How often did you have a dri nk containing alcohol in the past year? 2 to 3 times a week (3 points) How many drinks did you have on a typical day when you were drinking in the past year? 3 or 4 drinks (1 point) How often did you have 6 or more drinks on one occasion in the past year? Never (0 point) Points 4 Interpretation Positive Problems Problem Type SNOMED Code ICD Code Onset Dates Problem Status W/U Status Risk Notes Problem 662565512 Colon cancer screening (Z12.11) Active confirmed Problem 464606493 Encounter for other preprocedural examination (Z01.818) Active confirmed Plan Of Treatment Future Test Test Name Order Date COLONOSCOPY 09/09/2019 Insurance Providers Payer Name Payer Address Payer Phone Subscriber Number Group Number Insured Name Patient Relationship to Insured Coverage Start Date Coverage End Date [facility] [address] [place] [phone] [id number] SHOSHANA GUERRA Self - patient is the insured Medical (General) History Medical History History ICD Code breast cancer 2001, right mastectomy, ch emoradiation, completed tamoxifen elevated cholesterol hypothyroid Surgical History Surgery Date(Month/Year) breast cancer surgery adhesions on intestines/ surgery foot left
== END 2025-03-14 13:54 | disposition home or self-care (01) ==
LOC: HO.CT 13:53
PROVIDERS: PCP Internal Medicine; Visit Provider Physician Assistant Medical
DX: R91.1 Solitary pulmonary nodule (principal); F17.210 Nicotine dependence, cigarettes, uncomplicated
CPT/HCPCS: 71250

== ENCOUNTER → 2025-03-14 13:54 | Outpatient (BNV) | payer OTHER, SELFPAY | PROVIDERS: PCP Internal Medicine; Visit Provider Radiology Diagnostic Radiology | DX: J84.89 Other specified interstitial pulmonary diseases (principal) | CPT/HCPCS: 71250 ==